=== PATIENT | male | born 1965 | race Caucasian/White ===

== ENCOUNTER 2017-04-09 08:54 | Outpatient (CLI) | payer OTHER ==
[2017-04-09] MEDS ORDERED: IOPAMIDOL-300 100 ML VIAL ONE (09:12)
[2017-04-09] MEDS ORDERED: IOPAMIDOL-300 50 ML VIAL ONE (09:12)
[2017-04-09] MEDS ORDERED: IOPAMIDOL-300 50 ML VIAL PO ONE (09:23)
[2017-04-09] MEDS ORDERED: IOPAMIDOL-300 100 ML VIAL IVP ONE (10:22)
--- NOTE | 2017-04-10 16:33 | CT Report ---
EXAM: CT ABDOMEN AND PELVIS EXAM DATE: 04/09/2017 10:30 AM. CLINICAL HISTORY: 4TH RECURRENCE OF INCISIONAL HERNIA. COMPARISONS: 05/09/2016. TECHNIQUE: Routine helical CT imaging was performed through the abdomen and pelvis. IV contrast: Yes . Enteric contrast: Yes. Reconstructions: Coronal and sagittal. In accordance with CT protocol optimization, one or more of the following dose reduction techniques w ere utilized for this exam: automated exposure control, adjustment of mA and/or KV based on patient s ize, or use of iterative reconstructive technique. FINDINGS: Lung Bases: Unremarkable. Liver: Unremarkable. No suspicious masses. Gallbladder/Bile Ducts: Unremarkable. Spleen: Unremarkable. Pancreas: Unremarkable. Adrenal Glands: Unremarkable. Kidneys: Unremarkable. No suspicious masses or hydronephrosis. Peritoneal Cavity/Bowel: No measurable hernia defect is seen with evidence of previous anterior abdom inal wall hernia repairs. Previous partial sigmoid colectomy. No bowel obstruction or inflammatory pr ocess seen. No free air or significant free fluid. No masses or adenopathy. The appendix is normal. N o excessive stool burden. Pelvic Organs: Bladder and prostate appear unremarkable. Vasculature: No aneurysms or other significant abnormality. Bones: No significant abnormality. Other: None. IMPRESSION: 1. No definitive CT evidence of recurrent hernia. 2. Previous partial sigmoid colectomy. [facility] Referring Provider Line: [phone] SITE ID: [id number]
== END 2017-04-09 08:55 | disposition home or self-care (01) ==
LOC: DI 08:54
PROVIDERS: ATTEND Surgery
DX: K43.2 Incisional hernia without obstruction or gangrene (principal); Z90.49 Acquired absence of other specified parts of digestive tract
CPT/HCPCS: 74177; Q9967

== ENCOUNTER 2017-09-21 08:00 | Outpatient (CLI) | payer OTHER ==
[2017-09-21 13:02] LABS: ALBUMIN 4.3 g/dL (3.2-5.5); ALBUMIN/GLOBULIN RATIO 1.5 (1.0-2.2); ALKALINE PHOSPHATASE 72 IU/L (42-121); ALT ALANINE AMINOTRANSFERASE 49 IU/L (10-60); AST ASPARTATE AMINOTRANSFERASE 32 IU/L (10-42); BILIRUBIN,TOTAL 1.1 mg/dL (0.2-1.0); BUN - BLOOD UREA NITROGEN 14 mg/dL (6-20); CARBON DIOXIDE - CO2 21 mmol/L (21-32); CHLORIDE 102 mmol/L (101-111); CHOL/HDL RATIO 5.6 (<5.0); CHOLESTEROL 186 mg/dL; GFR - MDRD 79 (>89); GLUCOSE 104 mg/dL (70-100); HDL CHOLESTEROL 33 mg/dL; LDL CHOLESTEROL,CALCULATED 127 mg/dL; LDL/HDL RATIO 3.8 (<3.6); SODIUM 136 mmol/L (135-145); TOTAL PROTEIN 7.1 g/dL (6.7-8.2); VLDL CHOLESTEROL 26 mg/dL
[2017-09-21 13:03] LABS: BASOPHILS % (AUTO) 0.4 %; EOSINOPHILS # (AUTO) 0.1 10^3/uL (0.0-0.7); EOSINOPHILS % (AUTO) 2.2 %; HGB - HEMOGLOBIN 16.1 g/dL (14.0-18.0); LYMPHOCYTES # (AUTO) 1.5 10^3/uL (1.5-3.5); LYMPHOCYTES % (AUTO) 24.4 %; MEAN CORPUSCULAR HEMOGLOBIN 34.4 pg (27.0-31.0); MEAN CORPUSCULAR HGB CONC 34.8 g/dL (32.0-36.0); MEAN CORPUSCULAR VOLUME 98.9 fL (80.0-94.0); MEAN PLATELET VOLUME 7.6 fL (7.4-11.4); MONOCYTES # (AUTO) 0.4 10^3/uL (0.0-1.0); MONOCYTES % (AUTO) 6.9 %; NEUTROPHILS % (AUTO) 66.1 %; PLT - PLATELET COUNT 168 10^3/uL (130-450); RED BLOOD COUNT 4.67 10^6/uL (4.70-6.10); RED CELL DISTRIBUTION WIDTH 13.4 % (12.0-15.0); WHITE BLOOD COUNT 6.1 x10^3/uL (4.8-10.8)
== END 2017-09-21 08:01 | disposition home or self-care (01) ==
LOC: LAB.N 08:00
PROVIDERS: ATTEND Family Medicine
DX: G47.33 Obstructive sleep apnea (adult) (pediatric) (principal); R10.33 Periumbilical pain; E66.01 Morbid (severe) obesity due to excess calories
CPT/HCPCS: 36415; 80050; 80061; 83721

== ENCOUNTER 2017-11-15 14:15 | Outpatient (CLI) | payer OTHER | END 2017-11-15 14:16 | disposition home or self-care (01) | LOC: SC 14:15 | PROVIDERS: ATTEND Internal Medicine Pulmonary Disease | DX: G47.33 Obstructive sleep apnea (adult) (pediatric) (principal) | CPT/HCPCS: 99203; 99212 ==

== ENCOUNTER 2017-11-25 08:05 | Day surgery (SDC) | payer OTHER ==
[2017-11-25] MEDS ORDERED: LACTATED RINGERS 1,000 ML IV ONE (08:12)
[2017-11-25] MEDS ORDERED: PROPOFOL 200 MG/20 ML VIAL IVP ONE (10:10)
[2017-11-25] MEDS ORDERED: LIDOCAINE-MPF 2% 5 ML VIAL IM ONE (10:10)
[2017-11-25] MEDS ORDERED: KETAMINE 500 MG/10 ML VIAL IVP ONE (10:10)
[2017-11-25 10:20] VITALS: BP 126/80
== END 2017-11-25 08:06 | disposition home or self-care (01) ==
LOC: SDS 08:05
PROVIDERS: ATTEND Surgery
PROC: 0DBP8ZX Excision of Rectum, Via Natural or Artificial Opening Endoscopic, Diagnostic (ICD-10-PCS; principal; 2017-11-25 09:30)
DX: Z12.11 Encounter for screening for malignant neoplasm of colon (principal); K62.1 Rectal polyp; F17.210 Nicotine dependence, cigarettes, uncomplicated
CPT/HCPCS: 45380; J7120; 88305

== ENCOUNTER 2017-12-08 11:14 | Outpatient (CLI) | payer OTHER ==
[2017-12-08 19:12] LABS: ALBUMIN 4.2 g/dL (3.2-5.5); ALBUMIN/GLOBULIN RATIO 1.4 (1.0-2.2); TOTAL PROTEIN 7.2 g/dL (6.7-8.2)
== END 2017-12-08 11:15 | disposition home or self-care (01) ==
LOC: LAB.N 11:14
PROVIDERS: ATTEND Surgery
DX: K43.2 Incisional hernia without obstruction or gangrene (principal)
CPT/HCPCS: 36415; 80053

== ENCOUNTER 2019-10-17 12:39 | Emergency (ER) | payer OTHER ==
[2019-10-17] MEDS ORDERED: BACITRACIN ZINC OINT 1 PACKET TOP STA (12:59)
[2019-10-17] MEDS ORDERED: LIDOCAINE 2%-EPI 1:100000 20 ML MDV SUBQ STA (12:59)
--- NOTE | 2019-10-17 13:20 | ED Physician Documentation ---
History of Present Illness - Stated complaint Stated Complaint: R ARM LAC - Chief complaint Chief Complaint: Laceration - History obtained from History obtained from: Patient (54-year-old male was at home today up in an apple tree trimming the branches with a chainsaw when he slipped on a mossy branch. His right forearm caught the edge the chain of the running chainsaw and sustained a laceration. Last tetanus was 2 years ago approximately. Patient states that he put a pressure dressing on his forearm and completed the trimming job before coming to the ER. He denies any numbness and tingling to his wrist or fingers, he has full function of his right wrist and fingers. no other concerns today.) Review of Systems Constitutional: reports: Reviewed and negative Eyes: reports: Reviewed and negative Ears: reports: Reviewed and negative Nose: reports: Reviewed and negative Skin: reports: Laceration (s) (Right mid-forearm anterior aspect) PD PAST MEDICAL HISTORY - Past Medical History Cardiovascular: None Respiratory: Sleep apnea, CPAP use Endocrine/Autoimmune: None GI: Diverticulitis : None HEENT: None Psych: None Musculoskeletal: Chronic back pain Derm: Other - Past Surgical History Past Surgical History: Yes General: Bowel surgery, Hiatal hernia repair Ortho: Shoulder arthroplasty - Present Medications Home Medications: Ambulatory Orders Medication Instructions Recorded Confirmed No Known Home Medications 11/25/17 10/17/19 - Allergies Allergies/Adverse Reactions: Allergies Allergy/AdvReac Type Severity Reaction Status Date / Time Sulfa (Sulfonamide Allergy Intermediate Respiratory Verified 10/17/19 12:56 Antibiotics) - Social History Does the pt smoke?: Yes Smoking Status: Current every day smoker Does the pt drink ETOH?: Yes Does the pt have substance abuse?: No - Immunizations Immunizations are current?: Yes Immunizations: TDAP current <10years - POLST Patient has POLST: No PD ED PE NORMAL - General General: Alert and oriented X 3, No acute distress, Well developed/nourished - HEENT HEENT: Atraumatic, EOMI - Respiratory Respiratory: No respiratory distress - Derm Derm: Normal color, Warm and dry - Neuro Neuro: Alert and oriented X 3, 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 No: Tendon Injury Anesthesia: Lidocaine 2% with epi Wound Preparation: Chlorhexadine, Hibiclens, Irrigated copiously NS, Wound explored, Wound edges modified. No: FB identified Skin layer closure: Nylon, Size #-0 - enter number (4), Sutures - enter # (13) Other: Patient tolerated well, No complications, Neurovascular intact, Dressing applied, Tetanus UTD PD MEDICAL DECISION MAKING - ED course Complexity details: d/w patient Departure - Departure Disposition: 01 Home, Self Care Clinical Impression: Laceration Condition: Good Instructions: ED Laceration All Comments: Made the dressing on for 24 hours. After that time you may take it off keep the wound clean dry and covered after about he may apply a small amount of antibiotic ointment to the sutures daily to keep them moist. Sutures need to come out in 10 to 14 days, you can have this done at your PCPs office. Watch for any signs of infection: increased redness & swelling around the laceration, red streaks going up your arm, fevers, chills, nausea, vomiting. If this occurs you may return to the ER for evaluation of the wound or your PCPs office. You can use ibuprofen or Tylenol for pain control.
[2019-10-17 14:31] VITALS: BP 159/90
== END 2019-10-17 14:30 | disposition home or self-care (01) ==
LOC: ED 12:39
DX: S51.811A Laceration without foreign body of right forearm, initial encounter (principal); W29.3XXA Contact with powered garden and outdoor hand tools and machinery, initial encounter; Y93.H2 Activity, gardening and landscaping; F17.200 Nicotine dependence, unspecified, uncomplicated
CPT/HCPCS: 12004; 99283; 99284; A9270

== ENCOUNTER 2022-12-10 10:30 | Outpatient (CLI) | payer OTHER ==
[2022-12-10 17:39] LABS: BASOPHILS % (AUTO) 0.5 %; EOSINOPHILS # (AUTO) 0.1 10^3/uL (0.0-0.7); EOSINOPHILS % (AUTO) 1.4 %; HCT - HEMATOCRIT 46.7 % (42.0-52.0); LYMPHOCYTES # (AUTO) 1.8 10^3/uL (1.5-3.5); LYMPHOCYTES % (AUTO) 32.4 %; MEAN CORPUSCULAR HGB CONC 34.3 g/dL (32.0-36.0); MEAN CORPUSCULAR VOLUME 99.2 fL (80.0-94.0); MEAN PLATELET VOLUME 9.4 fL (7.4-11.4); MONOCYTES # (AUTO) 0.4 10^3/uL (0.0-1.0); MONOCYTES % (AUTO) 6.5 %; NEUTROPHILS # (AUTO) 3.3 10^3/uL (1.5-6.6); NEUTROPHILS % (AUTO) 58.8 %; PLT - PLATELET COUNT 187 10^3/uL (130-450); RED BLOOD COUNT 4.71 10^6/uL (4.70-6.10); RED CELL DISTRIBUTION WIDTH 13.4 % (12.0-15.0); WHITE BLOOD COUNT 5.7 x10^3/uL (4.8-10.8)
[2022-12-10 18:06] LABS: ALBUMIN/GLOBULIN RATIO 1.3 (1.0-2.2); ALKALINE PHOSPHATASE 67 IU/L (42-121); ALT ALANINE AMINOTRANSFERASE 36 IU/L (10-60); AST ASPARTATE AMINOTRANSFERASE 32 IU/L (10-42); BILIRUBIN,TOTAL 1.6 mg/dL (0.2-1.0); BUN - BLOOD UREA NITROGEN 16 mg/dL (6-20); CALCIUM 8.6 mg/dL (8.5-10.3); CARBON DIOXIDE - CO2 24 mmol/L (21-32); CHLORIDE 108 mmol/L (101-111); CHOL/HDL RATIO 3.1 (<5.0); CHOLESTEROL 152 mg/dL; CREATININE 0.9 mg/dL (0.6-1.2); GFR - MDRD 88 (>89); GLUCOSE 114 mg/dL (70-100); HDL CHOLESTEROL 49 mg/dL; LDL CHOLESTEROL,CALCULATED 88 mg/dL; LDL/HDL RATIO 1.8 (<3.6); POTASSIUM 3.7 mmol/L (3.5-5.0); SODIUM 139 mmol/L (135-145); TOTAL PROTEIN 7.1 g/dL (6.7-8.2); TRIGLYCERIDES 77 mg/dL; VLDL CHOLESTEROL 15 mg/dL
[2022-12-10 21:08] LABS: ESTIMATED AVERAGE GLUCOSE 108 mg/dL (70-100); HEMOGLOBIN A1c% 5.4 % (4.27-6.07)
== END 2022-12-10 10:45 | disposition home or self-care (01) ==
LOC: LAB.N 10:30
PROVIDERS: ATTEND Physician Assistant Medical
DX: I25.2 Old myocardial infarction (principal)
CPT/HCPCS: 36415; 80053; 80061; 83036; 83721; 84443; 85025

== ENCOUNTER 2023-01-28 12:58 | Outpatient (CLI) | payer OTHER, MEDICAID ==
--- NOTE | 2023-01-28 13:48 | Sleep Patient Instructions ---
Sleep Center Visit Summary - Patient Visit Information Reason for Visit: Initial consult with patient currently on PAP therapy - Patient Instructions Additional Instructions: You will continue with CPAP therapy with pressure set at 10-11 cmH2O. A supply prescription will be sent to your new DME supplier. We have also added to update your machine. The DME should call you when they have a machine to set you up with and to set up the mask fitting. We encourage you to continue to try to lose weight. Please follow up with the sleep care office one month after obtaining new device. - Clinic Information Contact: [facility] [address] [place] [address] [email or web address] T: [phone]
--- NOTE | 2023-01-28 13:57 | SLEEP CARE CONSULTATION ---
Information from patient questionnaire entered by Yari Bell. I have reviewed and concur with the information entered by Yari Bell. This document represents the service I personally performed and the decisions made by me, Janet Stephenson ARNP. History of Present Illness Service Date and Time: 01/28/2023 1258 Reason for Visit: New patient, Previously diagnosed sleep apnea, sleep apnea on CPAP therapy Chief Complaint: reports: Unrefreshed sleep, Snoring, Excessive daytime sleepiness, Observed pauses in breathing, Fatigue, Frequent awakenings at night, Other (UPDATE SUPPLIES) Date of Onset: 2013 Usual bedtime: 10PM Time it takes to fall asleep: 30-45MIN Snores at night: Yes Observed to quit breathing while asleep: Yes Sleeps alone due to snoring: Yes Number of times waking at night: 10-15 Reasons for waking at night: reports: Choking, Snoring, Gasping for air Toss, Turn, or Twitch while sleeping: Yes Recalls having dreams: No Feels refreshed in the morning: No Morning headache: Yes Sleepy or fatigued during the day: Yes Ever fallen asleep while driving: No Takes day naps: No Dreams during day naps: No Prior sleep studies: Yes Year and Where: 2013 [facility] Additional HPI information: NHUNG SHARMA JR was diagnosed to have very severe, AHI 80.5, obstructive sleep apnea-hypopnea syndrome as noted in progress notes when last seen in 2018, done in 2013 at [facility] in [place], [place] and comes in today to establish care for CPAP therapy. Patient states he has been buying his own supplies online. He states he was set up to get a new machine in 2018 but had difficulties with working with [facility] and did not end up getting the new machine. He is back because the machine does not feel like its pressure is as strong as it used to be and he feels his symptoms have all returned in the last few years. - Parasomnia Symptoms Ever been unable to move upon waking from sleep: No Walks in sleep: No Talks in sleep: No Ever acted out dreams in sleep: No Ever felt weak in the knees when startled or emotional: No Bothered by creepy, crawly, restless sensations in legs: No Problems with memory or concentration: No CPAP Compliance Data - Data Reviewed with Patient Average duration of nightly device use: 8 hours19 minutes Compliance rate %: 79 (72/90 days used) Current pressure setting (cmH2O): 10-11 Average residual AHI: 0.3 Central apnea: 0.1 Obstructive apnea: 0.2 Compliance data discussion: He has a S9 AutoSet that was set up 10/23/2013. He gets his supplies from [facility]. He is using a nasal cushion that goes over his nose. He does not fe el the S9 can keep up with the new masks. It leaks more and the machine will shut off. He does not have a backup mask. Subjective Missed days of use due to: reports: travel (out of town) Patient concerns: reports: air blowing in eyes, mask leak noise. denies: aerophagia, mask discomfort, condensation in mask/hose, nasal congestion, dry mouth, nose, throat, epistaxis Observed to snore while using device: Yes Current pressure setting perceived as: too low On therapy, patient: reports: sleeping better, awakening more refreshed, being more awake and alert during the day, more rested overall, other (has been less effective in controlling symptoms in last 3 years). denies: drowsiness while driving Initial Vivian Sleepiness Scale score: 7 (01/28/23) Past Medical History Past Medical History: reports: Arthritis, Coronary Heart Disease ([place], 2 stents placed), GERD Social History The patient's occupation is a RE. Patient is and lives in [place]. Have you smoked in the past 12 months: No Alcohol use: Yes Alcohol amount and frequency: 1-2 SHOTS 3-4 X WEEK Caffeine use: Yes Caffeine amount and frequency: 1-3 CUPS DAILY Family History Family history of sleep disordered breathing: No Allergies and Home Medications Known drug allergies: Yes (SULFA DRUGS AND IODINE) Drug allergies reviewed: Yes Home medication list reviewed: Yes Allergy and home medication list: Allergies Sulfa (Sulfonamide Antibiotics) Allergy (Intermediate, Verified 01/27/23 09:30) Respiratory Medications: Aspirin -statin (unsure of name) Review of Systems Cardiovascular: denies: high blood pressure Respiratory: denies: shortness of breath Gastrointestinal: denies: heartburn Neurological: denies: headaches Psychiatric: reports: anxiety Ear/Nose/Throat: reports: wisdom teeth removed Musculoskeletal: reports: back pain Immunologic: reports: sneezing Physical Exam Vital signs obtained and entered by: YARI Houston MA Blood Pressure: 114/68 (LEFT ARM) Cuff size: regular Heart Rate: 91 O2 Saturation: 97 Height: 5 ft 7 in Weight: 262 lb Body Mass Index: 41.0 BMI Classification: Morbidly Obese Neck circumference: 21.5 Heart: regular rate and rhythm Lungs: clear bilaterally Impression and Plan 1. Obstructive Sleep Apnea-Hypopnea Syndrome, very severe, with good treatment compliance and good apnea control. On CPAP therapy, the patient has better sleep quality and is more rested overall. Patient needs a new DME supplier, so I will set him up so that he can get his supplies through them. He also has a S9 AutoSet that was last updated in 2013. The patients CPAP is over 5 years old and of reasonable use. In addition, it's pressure does not seem as strong as it should be, a sign of possible malfunction. Thus, the CPAP will be updated. Patient has been using a nasal cushion that went over his nose. He would like to try a full face mask because the other seems to leak more and he is not as comfortable. I will add a mask fitting for full face mask to his prescription for the new DME. A [facility] prescription will be made for new DME supplier and machine. Compliance guidelines for new device and follow up discussed. Patient's apnea severity and rationale for treatment to reduce apnea, improve sleep quality and reduce cardiovascular and cerebrovascular events was reviewed. I also reviewed the benefit of consistent device use of CPAP for cardiac disease. 2. Obesity, unspecified. Currently patients BMI is 41. Obesity increases the risk of apnea, CPAP pressure requirements and overall health risks especially cardiovascular and diabetes. Thus patient is advised to lose weight. * Continue auto CPAP pressure at 10-11 cmH2O * Update machine * Update supplies * Mask fitting for full face mask * Notify me if snoring with mask or feeling that the pressure is too much or too little * Attempt to lose weight * Call this office if any problems using CPAP * Return for follow up one month after obtaining new device, or sooner if concerns arise * Counseling Topics: Spare mask, Weight loss health impact Prescriptions: Auto CPAP, Device supplies, Other (mask fitting) Visit Type: In Office Time Spent with Patient (minutes): 31 Provider Statement: I spent 100% of the Face to Face Visit with the patient with greater than 50% spent counseling the patient and coordination of care.
[2023-01-28 14:25] VITALS: BP 114/68
== END 2023-01-28 12:59 | disposition home or self-care (01) ==
LOC: SC 12:58
PROVIDERS: ATTEND Nurse Practitioner Family
DX: G47.33 Obstructive sleep apnea (adult) (pediatric) (principal); E66.01 Morbid (severe) obesity due to excess calories; Z68.41 Body mass index [BMI] 40.0-44.9, adult
CPT/HCPCS: 99203; 99212